=== PATIENT | male | born 1955 | race American Indian/Alaskan Native ===

== ENCOUNTER 2017-02-17 14:04 | Outpatient (CLI) | payer MEDICARE, OTHER | END 2017-02-17 14:05 | disposition home or self-care (01) | LOC: LAB 14:04 | PROVIDERS: ATTEND Clinical Nurse Specialist Psychiatric/Mental Health | DX: F31.4 Bipolar disorder, current episode depressed, severe, without psychotic features (principal) | CPT/HCPCS: 36415; 80164 ==